=== PATIENT | male | born 1945 | race Caucasian/White ===

== ENCOUNTER 2016-05-03 05:18 | Inpatient (IN) | payer MEDICARE, OTHER ==
[2016-05-03] MEDS ORDERED: ROCEPHIN 1 Gm-D5w 50 ml Bag** 50 ML IV ONE ×2 (05:21→05:34)
[2016-05-03] MEDS ORDERED: PROVENTIL 2.5 MG/3 ML NEB IH ONE ×2 (05:21→05:49)
[2016-05-03] MEDS ORDERED: Zithromax 500 MG/ 250 ML NaCl Premix 250 ML IV ONE ×2 (05:21→05:34)
--- NOTE | 2016-05-03 05:29 | ERPHSYRPT ---
- History of Present Illness Time Seen by Provider: 05/03/16 05:19 Source: patient Exam Limitations: no limitations Physician History: FOR THE PAST WEEK PT HAS HAD SHORTNESS OF AIR AND COUGH WORSE TONIGHT WITH FEVER OF 101 DEGREES, LEFT ANTERIOR CHEST PAIN AND ABDOMINAL PAIN FOR THE PAST HOUR. PT DENIES VOMITING, DIARRHEA, DYSURIA. Allergies/Adverse Reactions: No Known Drug Allergies Allergy (Verified 05/03/16 05:41) Home Medications: Albuterol Sulfate [Proair Hfa] 2 puff IH TIDPRN PRN 05/05/14 [History] Albuterol Sulfate 2.5 mg IH Q6H PRN PRN 05/03/16 [History] Fluticasone/Salmeterol [Advair 250-50 Diskus] 1 puff IH BID 05/03/16 [History] Sacubitril/Valsartan [Entresto 24 mg-26 mg Tablet] 1 each PO BID 05/03/16 [ History] Hx Tetanus, Diphtheria Vaccination/Date Given: Yes Hx Influenza Vaccination/Date Given: Yes Hx Pneumococcal Vaccination/Date Given: No - Review of Systems Constitutional: Fever Respiratory: Cough, Dyspnea Cardiac: Chest Pain Abdominal/Gastrointestinal: Abdominal Pain, No Vomiting, No Diarrhea Genitourinary Symptoms: No Dysuria All Other Systems: Reviewed and Negative - Past Medical History Pertinent Past Medical History: No Neurological History: No Pertinent History ENT History: Cataracts Cardiac History: No Pertinent History Respiratory History: COPD Endocrine Medical History: No Pertinent History Musculoskeletal History: No Pertinent History GI Medical History: No Pertinent History History: No Pertinent History Psycho-Social History: No Pertinent History Male Reproductive Disorders: No Pertinent History - Past Surgical History Past Surgical History: No Neuro Surgical History: No Pertinent History Cardiac: No Pertinent History Respiratory: No Pertinent History Gastrointestinal: No Pertinent History Genitourinary: No Pertinent History Musculoskeletal: No Pertinent History Other Surgical History: cataracts sx in 2014 - Social History Smoking Status: Former smoker Exposure to second hand smoke: No Drug Use: none Patient Lives Alone: No - Nursing Vital Signs Nursing Vital Signs: Initial Vital Signs Temperature 98.0 F Temperature Source Axillary Pulse Rate 99 Respiratory Rate 18 Blood Pressure [] 92/56 Pain Intensity 0 - Physical Exam General Appearance: alert Eye Exam: PERRL/EOMI Ears, Nose, Throat Exam: hearing grossly normal Neck Exam: full range of motion Respiratory Exam: respiratory distress, diminished breath sounds, accessory muscle use, wheezing Cardiovascular/Chest Exam: normal heart sounds Abdominal/Gastrointestinal Exam: soft, normal bowel sounds Extremity Exam: normal inspection, No pedal edema Peripheral Pulses Exam: dorsalis-pedis (R): 2+, dorsalis-pedis (L): 2+ Neurologic Exam: alert, cooperative Skin Exam: warm, dry SpO2 Interpretation: normal SpO2: 96 Oxygen Delivery: BiPap - Course Nursing assessment & vital signs reviewed: Yes EKG Interpreted by Me: RATE (99), Sinus Rhythm, NORMAL AXIS, Non-specific ST Changes - Radiology Exams Chest X-ray Interpretation: Interpreted by me (COPD) Ordered Tests: Active Orders 24 hr Category Date Time Status Business Banking Representative STAT Care 05/03/16 05:21 Active EKG-ER Only STAT Care 05/03/16 05:21 Active IV Insertion STAT Care 05/03/16 05:21 Active Pulse Oximetry (ED) STAT Care 05/03/16 05:21 Active CHEST 1 VIEW (PORTABLE) Stat Exams 05/03/16 05:22 Taken AMYLASE Stat Lab 05/03/16 05:39 Completed ARTERIAL BLOOD GASES Urgent Lab 05/03/16 05:21 Completed BLOOD CULTURE Stat Lab 05/03/16 06:00 Received CBC W DIFF Stat Lab 05/03/16 05:39 Completed CMP Stat Lab 05/03/16 05:39 Completed CULTURE, THROAT Stat Lab 05/03/16 05:39 Received CULTURE,SPUTUM Stat Lab 05/03/16 06:14 Ordered LIPASE Stat Lab 05/03/16 05:39 Completed MAGNESIUM Stat Lab 05/03/16 05:39 Completed Manual Differential NC Stat Lab 05/03/16 05:39 Completed NT PRO BNP Stat Lab 05/03/16 05:39 Completed STREP SCREEN-BETA A Stat Lab 05/03/16 05:39 Completed TROPONIN Stat Lab 05/03/16 05:39 Completed BiPap/CPAP Assessment STAT RT 05/03/16 05:21 Completed Respiratory Nebulizer STAT RT 05/03/16 05:23 Completed Medication Summary Generic Name Dose Route Start Last Admin Trade Name Freq PRN Reason Stop Dose Admin Azithromycin 250 mls @ 125 mls/hr 05/03/16 05:21 05/03/16 05:46 Zithromax 500 Mg/ 250 Ml Nacl Premix IV 05/03/16 07:20 125 mls/hr STAT ONE Administration Sodium Chloride 1,000 mls @ 100 mls/hr 05/03/16 05:30 05/03/16 05:46 Sodium Chloride 0.9% 1000 Ml IV 06/02/16 05:29 100 mls/hr .Q10H YAIR Administration Magnesium Sulfate/Dextrose 100 mls @ 200 mls/hr 05/03/16 06:34 Magnesium 1 Gm / 100 Ml D5w IV 05/03/16 07:03 STAT ONE Discontinued Medications Generic Name Dose Route Start Last Admin Trade Name Jasonq PRN Reason Stop Dose Admin Albuterol Sulfate 2.5 mg 05/03/16 05:21 05/03/16 05:50 Proventil 2.5 Mg/3 Ml Neb IH 05/03/16 05:22 2.5 mg STAT ONE Administration Albuterol Sulfate Confirm 05/03/16 05:49 Proventil 2.5 Mg/3 Ml Neb Administered 05/03/16 05:50 Dose 2.5 mg IH .STK-MED ONE Ceftriaxone Sodium/Dextrose 50 mls @ 100 mls/hr 05/03/16 05:21 05/03/16 05:46 Rocephin 1 Gm-D5w 50 Ml Bag IV 05/03/16 05:50 100 mls/hr STAT ONE Administration Azithromycin Confirm 05/03/16 05:34 Zithromax 500 Mg/ 250 Ml Nacl Premix Administered 05/03/16 05:35 Dose 250 mls @ ud IV .STK-MED ONE Sodium Chloride Confirm 05/03/16 05:34 Sodium Chloride 0.9% 1000 Ml Administered 05/03/16 05:35 Dose 1,000 mls @ ud .ROUTE .STK-MED ONE Ceftriaxone Sodium/Dextrose Confirm 05/03/16 05:34 Rocephin 1 Gm-D5w 50 Ml Bag Administered 05/03/16 05:35 Dose 50 mls @ ud IV .STK-MED ONE Lab/Rad Data: Laboratory Result Diagrams 05/03/16 05:39 05/03/16 05:39 Laboratory Results 05/03/16 05/03/16 05/03/16 Range/Units 05:39 05:39 05:39 WBC (4.0-10.5) K/mm3 RBC (4.1-5.6) M/mm3 Hgb (12.5-18.0) gm/dl Hct (42-50) % MCV (78-100) fl MCH (26-32) pg MCHC (32-36) g/dl RDW (11.5-14.0) % Plt Count (150-450) K/mm3 MPV (6-9.5) fl Segmented Neutrophils (36.-66.) % Band Neutrophils (0.0-2.0) % Lymphocytes (Manual) (24-44) % Monocytes (Manual) (0.0-12.0) % Platelet Estimate (NORMAL) Poikilocytosis Puncture Site pCO2 (35-45) mmHg pO2 (75-100) mmHg Base Excess (-2.0-2.0) O2 Saturation (94-100) g/dF ABG pH (7.35-7.45) ABG HCO3 (22-28) ABG O2 Sat (Measured) (95-100) % Gopi Test A-a Gradient a/A Ratio Hemoglobin Carboxyhemoglobin (0.0-6.9) % THgb Methemoglobin (1.4-1.5) % Potassium 4.6 (3.5-5.1) Temperature C POC O2 Flow Rate % Sodium 140 (136-145) mEq/L Chloride 101 (98-107) mEq/L Carbon Dioxide 31.0 (21-32) mEq/L Anion Gap 12.4 (5-15) MEQ/L BUN 17 (9-20) mg/dL Creatinine 0.92 (0.55-1.30) mg/dl Estimated GFR > 60 ML/MIN Glucose 122 H (70-110) MG/DL Calcium 8.8 (8.5-10.1) mg/dL Magnesium 1.7 L (1.8-2.4) mg/dL Total Bilirubin 1.6 H (0.2-1.0) mg/dL AST 13 L (15-37) U/L ALT 14 (12-78) U/L Alkaline Phosphatase 66 (46-116) U/L Troponin I < 0.017 (0.000-0.056) ng/ml NT-Pro-B Natriuret Pep 242 H (0-125) pg/ml Serum Total Protein 7.6 (6.4-8.2) gm/dL Albumin 4.0 (3.4-5.0) g/dL Amylase 15 L (25-115) U/L Lipase 48 L (73-393) U/L Streptococcus Screen NEGATIVE (Negative) 05/03/16 05/03/16 Range/Units 05:39 05:21 WBC 14.6 H (4.0-10.5) K/mm3 RBC 4.56 (4.1-5.6) M/mm3 Hgb 13.8 (12.5-18.0) gm/dl Hct 43.1 (42-50) % MCV 94.5 (78-100) fl MCH 30.3 (26-32) pg MCHC 32.0 (32-36) g/dl RDW 14.5 H (11.5-14.0) % Plt Count 187 (150-450) K/mm3 MPV 10.7 H (6-9.5) fl Segmented Neutrophils 92 H (36.-66.) % Band Neutrophils 1 (0.0-2.0) % Lymphocytes (Manual) 5 L (24-44) % Monocytes (Manual) 2 (0.0-12.0) % Platelet Estimate NORMAL (NORMAL) Poikilocytosis 1+ Puncture Site RIGHT BRACHIAL pCO2 54 H (35-45) mmHg pO2 92 (75-100) mmHg Base Excess 2.9 H (-2.0-2.0) O2 Saturation 95.7 (94-100) g/dF ABG pH 7.35 (7.35-7.45) ABG HCO3 29.8 H* (22-28) ABG O2 Sat (Measured) 99.1 (95-100) % Gopi Test YES A-a Gradient 554 a/A Ratio 0.14 Hemoglobin 14.0 Carboxyhemoglobin 2.2 (0.0-6.9) % THgb Methemoglobin 1.1 L (1.4-1.5) % Potassium 4.4 (3.5-5.1) Temperature 37.0 C POC O2 Flow Rate 100 % Sodium (136-145) mEq/L Chloride (98-107) mEq/L Carbon Dioxide (21-32) mEq/L Anion Gap (5-15) MEQ/L BUN (9-20) mg/dL Creatinine (0.55-1.30) mg/dl Estimated GFR ML/MIN Glucose (70-110) MG/DL Calcium (8.5-10.1) mg/dL Magnesium (1.8-2.4) mg/dL Total Bilirubin (0.2-1.0) mg/dL AST (15-37) U/L ALT (12-78) U/L Alkaline Phosphatase (46-116) U/L Troponin I (0.000-0.056) ng/ml NT-Pro-B Natriuret Pep (0-125) pg/ml Serum Total Protein (6.4-8.2) gm/dL Albumin (3.4-5.0) g/dL Amylase (25-115) U/L Lipase (73-393) U/L Streptococcus Screen (Negative) - Progress Discussed with Dr.: Friedman (OBS - [id number]) - Departure Time of Disposition: 06:43 Departure Disposition: Observation Clinical Impression: COPD - ACUTE EXACERBATION Condition: Stable Critical Care Time: No
[2016-05-03] MEDS ORDERED: Sodium Chloride 0.9% 1000 ML 1,000 ML IV SCH (05:30)
[2016-05-03] MEDS ORDERED: Sodium Chloride 0.9% 1000 ML 1,000 ML ONE (05:34)
[2016-05-03 05:52] LABS: Mean Cell Volume 94.5 fl (78-100); Mean Corpuscular Hemoglobin 30.3 pg (26-32); Mean Platelet Volume 10.7 fl (6-9.5); Platelet Count 187 K/mm3 (150-450); Red Blood Count 4.56 M/mm3 (4.1-5.6); Red Cell Distribution Width 14.5 % (11.5-14.0); White Blood Count 14.6 K/mm3 (4.0-10.5)
[2016-05-03 06:07] LABS: BAND 1 % (0.0-2.0); Total Cells Counted 100
[2016-05-03 06:09] LABS: LIPASE 48 U/L (73-393); Platelet Estimate NORMAL (NORMAL); Poikilocytosis 1+
[2016-05-03 06:19] LABS: ALKALINE PHOSPHATASE 66 U/L (46-116); ANION GAP 12.4 MEQ/L (5-15); BILIRUBIN,TOTAL 1.6 mg/dL (0.2-1.0); BLOOD UREA NITROGEN 17 mg/dL (9-20); CHLORIDE 101 mEq/L (98-107); Glucose 122 MG/DL (70-110); MAGNESIUM 1.7 mg/dL (1.8-2.4); Potassium 4.6 mEq/L (3.5-5.1); SGOT/AST 13 U/L (15-37); SGPT/ALT 14 U/L (12-78); SODIUM 140 mEq/L (136-145); Total Protein 7.6 gm/dL (6.4-8.2)
[2016-05-03 06:28] LABS: TROPONIN < 0.017 ng/ml (0.000-0.056)
[2016-05-03] MEDS ORDERED: Magnesium 1 Gm / 100 Ml D5W*** 100 ML IV ONE ×2 (06:34→06:48)
[2016-05-03 06:36] LABS: A-aADO2 554; ALLEN TEST OK? YES; ARTERIAL BLD GAS O2 SATURATION 99.1 % (95-100); ARTERIAL BLOOD GAS BASE EXCESS 2.9 (-2.0-2.0); ARTERIAL BLOOD GAS FIO2 100 %; ARTERIAL BLOOD GAS PO2 92 mmHg (75-100); ARTERIAL BLOOD GAS pH 7.35 (7.35-7.45)
[2016-05-03] MEDS ORDERED: Phenergan 25 MG INJ IV PRN (07:32)
[2016-05-03] MEDS ORDERED: PROVENTIL 2.5 MG/3 ML NEB IH PRN (07:32)
[2016-05-03] MEDS ORDERED: TYLENOL 325 MG PO PRN (07:32)
[2016-05-03] MEDS: solu-MEDROL 40 MG IV SCH ×3 (08:42→21:10)
[2016-05-03] MEDS: MAG-OX 400 PO SCH (08:42)
[2016-05-03] MEDS: PROTONIX 40 MG IV IV SCH (08:42)
--- NOTE | 2016-05-03 09:18 | XRAY ---
Indication: Short of breath. Comparison: August 31, 2015. Portable chest again hyperinflated and clear. Heart is not enlarged. Bony thorax intact. No new/acute findings. Impression: Stable nonacute hyperinflated chest.
[2016-05-03] MEDS: DUONEB 0.5-3 MG/3 ml Neb IH SCH ×5 (10:26→22:49)
[2016-05-03] MEDS: Advair Hfa 115/21 Common canister IH SCH ×2 (10:28→18:55)
[2016-05-03] MEDS ORDERED: MEDICATION INTERVENTION MC PRN (14:04)
[2016-05-03] MEDS: Toprol-Xl 25MG Tablets PO SCH (14:11)
[2016-05-03] MEDS: ENOXAPARIN SODIUM SQ SCH (14:12)
--- NOTE | 2016-05-03 14:43 | HP ---
HISTORY OF PRESENT ILLNESS: This is a 70 year-old male without a physician in the local area presented to the emergency department. He reports that he has had trouble breathing for the past two days with increased congestion, cough, sputum that is thick and green in color. He reports a temperature up to 100.3F yesterday. He reports he has a long history of chronic obstructive pulmonary disease for the past ten to eleven years and used to smoke more than a pack a day but quit six to seven years ago. He reports he was trying to use Mucinex as needed. He also has used Tussionex in the past and that has helped as well. He reports that he is still having some trouble breathing but feeling a little bit better than when he came into the hospital. REVIEW OF SYSTEMS: He reports he had a lot of weight loss two years ago that he has not been able to regain. He denies any lower extremity edema. He reports gout in the past which one of the medicines that Dr. Douglass gave him helped with. He reports decreased appetite. He had some chest pain in the emergency room that he felt may have been a muscle spasm. It seemed to radiate to his stomach. He denied any diaphoresis with this. He has been extremely short of breath, cough, and fever. No diarrhea. No constipation. PAST MEDICAL HISTORY: Chronic obstructive pulmonary disease. History of heart problems for which he has seen Dr. Viera for but he denies any coronary artery disease. He reports that he had heart cath in the past that has been normal. He has had the weight loss. History of gout. PAST SURGICAL HISTORY: Cataract surgery. SOCIAL HISTORY: He does not smoke now. He quit six to seven years ago and was smoking greater than one pack per day. No alcohol use currently or recently. He lives with his daughter who reports that she has to do all of the shopping. FAMILY HISTORY: His mother is and had Alzheimer's. His father is and had myocardial infarction when he was 92 years of age. PHYSICAL EXAMINATION: VITAL SIGNS: Temperature current 97.9F, temperature max 97.9F, heart rate 72 to 96, respiratory rate 18 to 24, blood pressure 112 to 128 over 56 to 68, weight 52.5 kg. Oxygen saturation 96 to 97% on 4 liters nasal cannula. GENERAL: The patient is sitting up in bed, slightly dyspneic but talking in full sentences, alert and pleasant and talkative. He is very thin. CVS: He has a regular rate and rhythm. No murmurs, gallops or rubs are appreciated. CHEST: He has distant breath sounds throughout that are equal with scattered wheezes. ABDOMEN: Soft, nontender, nondistended. EXTREMITIES: No clubbing, cyanosis or edema. LABORATORY DATA AND TESTS: On admission his white blood cell count was 14,600 with 92% neutrophils, 1% band, 5% lymphs. CMP revealed glucose 122. Magnesium on admission was 1.7, repeat later this morning was 2.4 after replacement. BNP was slightly elevated to 242. He has blood cultures, sputum cultures and throat cultures in lab. Chest x-ray was read as stable nonacute hyperinflated chest. ASSESSMENT AND PLAN: 1) CHRONIC OBSTRUCTIVE PULMONARY DISEASE EXACERBATION: He has been started on ceftriaxone and azithromycin as well as IV steroids. Will continue with all of these, continue with oxygen as needed and breathing treatments. Will ask for core rescuer, Dr. Ganesh Douglass, to see the patient. 2) HISTORY OF UNSPECIFIED HEART PROBLEM: Will try to obtain Dr. Viera's records. 3) CHEST PAIN: He is on a chest pain pathway. He had serial negative troponins. His EKG is normal sinus rhythm with a heart rate of 90, nonspecific T-wave changes in the inferior leads and PVC. Will continue with telemetry and rule out for acute myocardial infarction. 4) CODE STATUS: The patient states that he does not want to be placed on a ventilator or have chest compressions done. 5) DEEP VENOUS THROMBOSIS PROPHYLAXIS: He will be started on Lovenox 40 mg subcutaneously daily as well as CHRISTOPHER hose.
--- NOTE | 2016-05-03 15:23 | CONS ---
CONSULT DATE: 05/03/2016 REASON FOR CONSULTATION: HISTORY: Dennys Jorgensen is a 70 year-old male with long standing history of chronic obstructive pulmonary disease well known to me but has never been hospitalized in the recent past. He started experiencing cough, shortness of breath, wheezing leading to an emergency room visit. The patient has since been admitted. He also lost unquantified amount of weight in the past few months. The patient does report poor appetite. He denies any hemoptysis. The patient has cough which has been thick and green in expectoration. He does report difficulty in expectorating the same and was advised to have tri-flutter valve. PAST MEDICAL HISTORY: Positive for chronic obstructive pulmonary disease, coronary artery disease, chronic respiratory failure, anxiety. PAST SURGICAL HISTORY: No recent surgeries. PERSONAL AND SOCIAL HISTORY: He is a former smoker. MEDICATIONS: Home and current medications are reviewed. ALLERGIES: ALLERGIES NOTED. PHYSICAL EXAMINATION: This is an elderly male who appears mildly tachypneic at rest. Vital signs are noted. HEENT: Normocephalic. Pupils are reactive. Oral exam unremarkable. NECK: Supple. Accessory muscles are mildly prominent.CVS: First and second heart sounds are normal, regular, rhythmic. RESPIRATORY: There is increase in AP diameter of chest. Breath sounds are diminished. Bilateral rhonchi are heard. ABDOMEN: Soft. EXTREMITIES: No significant edema is noted. LABORATORY DATA AND TESTS: X-rays were reviewed. ASSESSMENT: This is a 70 year old male admitted with: 1) Chronic obstructive pulmonary disease with acute exacerbation. 2) Acute bronchitis. 3) Hypoxemia. 4) Significant weight loss concerning for occult malignancy. RECOMMENDATIONS: 1) I agree with current treatment. 2) Will obtain CT chest with contrast per pulmonary embolism protocol. 3) Follow up labs. 4) Check CEA and PSA. 5) Will get nutritional consult as well as start the patient on Boost. 6) Reduce steroids as clinical improvement is noted. If the patient's expectoration does not improve, may require bronchoscopy. 7) Further recommendations pending clinical improvement. Thank you for allowing me to participate in the care of Dennys Jorgensen.
--- NOTE | 2016-05-03 15:53 | XRAY ---
Indication: Short of breath and chest pain. Multiple contiguous axial images obtained through the chest using 80 cc Isovue 370 contrast and PE protocol. Comparison: August 31, 2015. There is again good opacification of the pulmonary arteries to include the lobar and segmental branches. Again no filling defect or pulmonary embolus. Heart is not enlarged. Aorta again minimally arteriosclerotic. Stable tiny right hilar calcified nodes. No pathologic mediastinal/hilar lymphadenopathy. Examination of the lung parenchyma again demonstrates extensive pulmonary emphysema and scattered fibrosis/scarring. Stable pulmonary micronodules in both upper lobes. No infiltrate, consolidation, or effusion. Bony thorax intact again with mild degenerative changes throughout the spine. Limited upper abdomen demonstrates stable right lobe hepatic and bilateral renal cysts. Impression: 1. Again negative for pulmonary embolus. No new/acute cardiopulmonary abnormalities. 2. Stable extensive pulmonary emphysema and scattered fibrosis/scarring. 3. Stable pulmonary micronodules again probably granulomatous in this demographic. The left apical noncalcified nodule is only stable since August 2015. Consider follow-up study per Fleischner guidelines. 4. Stable hepatic and renal cysts. CTDI 10.00
[2016-05-03] MEDS: Mucomyst 200 MG/ML IH SCH ×2 (17:12→18:53)
[2016-05-03] MEDS ORDERED: NON-FORMULARY ITEM (Sacubitril/Valsartan [Entresto 24 Mg-26 Mg Tablet] 1 EACH) PO SCH (22:00)
[2016-05-04] MEDS: solu-MEDROL 40 MG IV SCH ×4 (02:41→20:18)
[2016-05-04] MEDS: DUONEB 0.5-3 MG/3 ml Neb IH SCH ×6 (02:59→23:14)
[2016-05-04 05:43] LABS: Mean Cell Volume 94.9 fl (78-100); Mean Platelet Volume 10.6 fl (6-9.5); Platelet Count 161 K/mm3 (150-450); Red Blood Count 3.94 M/mm3 (4.1-5.6); Red Cell Distribution Width 14.6 % (11.5-14.0); White Blood Count 14.2 K/mm3 (4.0-10.5)
[2016-05-04 05:50] LABS: Mean Corpuscular Hemoglobin 29.6 pg (26-32)
[2016-05-04 06:25] LABS: ALBUMIN 3.4 g/dL (3.4-5.0); ALKALINE PHOSPHATASE 54 U/L (46-116); ANION GAP 9.6 MEQ/L (5-15); BILIRUBIN,TOTAL 0.3 mg/dL (0.2-1.0); BLOOD UREA NITROGEN 21 mg/dL (9-20); CHLORIDE 107 mEq/L (98-107); Carbon Dioxide 31.2 mEq/L (21-32); Glucose 159 MG/DL (70-110); Potassium 4.7 mEq/L (3.5-5.1); SGOT/AST 13 U/L (15-37); SGPT/ALT 12 U/L (12-78); SODIUM 143 mEq/L (136-145); Total Protein 6.6 gm/dL (6.4-8.2)
[2016-05-04 07:07] LABS: Total Cells Counted 100
[2016-05-04 07:08] LABS: Platelet Estimate NORMAL (NORMAL)
[2016-05-04] MEDS: Advair Hfa 115/21 Common canister IH SCH ×2 (07:09→19:19)
[2016-05-04] MEDS: ROCEPHIN 1 Gm-D5w 50 ml Bag** 50 ML IV SCH (09:13)
[2016-05-04] MEDS: MAG-OX 400 PO SCH (09:14)
[2016-05-04] MEDS: PROTONIX 40 MG IV IV SCH (09:14)
[2016-05-04] MEDS: Toprol-Xl 25MG Tablets PO SCH (09:14)
--- NOTE | 2016-05-04 09:18 | PCM.NOTE ---
Date and Time: 05/04/16912 Subjective Assessment: He reports he has been jittery today. He has had a good appetite since coming here. He continues to cough up sputum but not as much this AM. He feels like his breathing is a little bit better this AM. - Review of Systems Constitutional: Weight Loss Eyes: No Symptoms Ears, Nose, & Throat: No Symptoms Respiratory: Cough, Short Of Breath, Wheezing Cardiac: No Symptoms Abdominal/Gastrointestinal: No Symptoms Genitourinary Symptoms: No Symptoms Musculoskeletal: No Symptoms Skin: No Symptoms Objective Exam General Appearance: cachetic, thin Neurologic Exam: alert, cooperative, normal mood/affect Skin Exam: normal color, warm, dry, No rash Respiratory Exam: other (scattered wheezes throughout, distant breath sounds bilat) Cardiovascular Exam: regular rate/rhythm, normal heart sounds, No murmur, No friction rub, No gallop Gastrointestinal/Abdomen Exam: soft, normal bowel sounds, No tenderness, No distention, No mass, No guarding Extremity Exam: other (no c/c/e) OBJECTIVE DATA Vital Signs: Vital Signs - 24 hr Temp Pulse Resp BP Pulse Ox 05/04/16 07:27 97.4 F 85 20 103/51 95 05/04/16 04:00 97.6 F 89 20 95/48 98 05/04/16 03:01 89 20 98 05/04/16 00:00 98.1 F 83 20 101/57 96 05/03/16 22:54 83 24 96 05/03/16 20:00 97.8 F 91 H 15 108/59 97 05/03/16 19:45 104 H 22 98 05/03/16 18:55 87 20 97 05/03/16 16:04 97.8 F 88 20 122/59 98 05/03/16 14:04 91 H 20 95 05/03/16 11:00 97.9 F 94 H 22 112/56 96 05/03/16 10:31 72 18 97 Oxygen-Last 24 hours O2 Percentage 3 Liters = 32% O2 Percentage 3 Liters = 32% O2 Percentage 3 Liters = 32% O2 Percentage 2 Liters = 28% O2 Percentage 2 Liters = 28% O2 Percentage 4 Liters = 36% Pain Assessment - Last Documented Pain Scale Used 0-10 Pain Scale Intake and Output: Intake & Output 05/02/16 05/03/16 05/04/16/17/17 06:59 06:59 06:59 06:59 Intake Total 1200 Output Total 950 200 Balance 250 -200 Weight 52.526 kg 52.345 kg Lab Results: Lab Results-Last 24 Hours 05/03/16 05/03/16 05/04/16 Range/Units 11:00 11:00 05:13 WBC 14.2 H (4.0-10.5) K/mm3 RBC 3.94 L (4.1-5.6) M/mm3 Hgb 11.7 L (12.5-18.0) gm/dl Hct 37.4 L (42-50) % MCV 94.9 (78-100) fl MCH 29.6 (26-32) pg MCHC 31.3 L (32-36) g/dl RDW 14.6 H (11.5-14.0) % Plt Count 161 (150-450) K/mm3 MPV 10.6 H (6-9.5) fl Segmented Neutrophils 95 H (36.-66.) % Lymphocytes (Manual) 3 L (24-44) % Monocytes (Manual) 2 (0.0-12.0) % Differential Comment NORMAL Platelet Estimate NORMAL (NORMAL) Sodium (136-145) mEq/L Potassium (3.5-5.1) mEq/L Chloride (98-107) mEq/L Carbon Dioxide (21-32) mEq/L Anion Gap (5-15) MEQ/L BUN (9-20) mg/dL Creatinine (0.55-1.30) mg/dl Estimated GFR ML/MIN Glucose (70-110) MG/DL Calcium (8.5-10.1) mg/dL Magnesium 2.4 (1.8-2.4) mg/dL Total Bilirubin (0.2-1.0) mg/dL AST (15-37) U/L ALT (12-78) U/L Alkaline Phosphatase (46-116) U/L Troponin I < 0.017 (0.000-0.056) ng/ml Serum Total Protein (6.4-8.2) gm/dL Albumin (3.4-5.0) g/dL 05/04/16 Range/Units 05:13 WBC (4.0-10.5) K/mm3 RBC (4.1-5.6) M/mm3 Hgb (12.5-18.0) gm/dl Hct (42-50) % MCV (78-100) fl MCH (26-32) pg MCHC (32-36) g/dl RDW (11.5-14.0) % Plt Count (150-450) K/mm3 MPV (6-9.5) fl Segmented Neutrophils (36.-66.) % Lymphocytes (Manual) (24-44) % Monocytes (Manual) (0.0-12.0) % Differential Comment Platelet Estimate (NORMAL) Sodium 143 (136-145) mEq/L Potassium 4.7 (3.5-5.1) mEq/L Chloride 107 (98-107) mEq/L Carbon Dioxide 31.2 (21-32) mEq/L Anion Gap 9.6 (5-15) MEQ/L BUN 21 H (9-20) mg/dL Creatinine 0.77 (0.55-1.30) mg/dl Estimated GFR > 60 ML/MIN Glucose 159 H (70-110) MG/DL Calcium 8.4 L (8.5-10.1) mg/dL Magnesium (1.8-2.4) mg/dL Total Bilirubin 0.3 (0.2-1.0) mg/dL AST 13 L (15-37) U/L ALT 12 (12-78) U/L Alkaline Phosphatase 54 (46-116) U/L Troponin I (0.000-0.056) ng/ml Serum Total Protein 6.6 (6.4-8.2) gm/dL Albumin 3.4 (3.4-5.0) g/dL Radiology Exams: Radiology Procedures Category Date Time Status CHEST WITH CONTRAST [CT] Urgent Exams 05/03/16 14:40 Completed Multi-Disciplinary Progress Notes: Multi-Disciplinary Progress Notes 05/04/16 04:48 Respiratory Note by Erika Bowman ON 05/03/16 AT 1849 PT HAD HIS FIRST DOSE OF MUCOMYST. AROUND 1940 NURSE CALLED RT TO REPORT PT WAS MORE SOB. RT JENNIFER WENT TO PT'S ROOM AND FOUND HIM ON THE SIDE OF THE BED IN A TRIPOD POSITION WITH INCREASED WOB. JENNIFER THEN CALLED THIS RT. I EXPLAINED THAT HE HAD HIS FIRST DOSE OF MUCOMYST AT 1849. I WENT TO PTS ROOM AT THIS TIME. PT WAS IN TRIPOD WITH INCREASED WOB. HR 104, RR, 22, SATS 98 ON 2L, B/S DECREASED. AT 1944 AN ALBUTEROL NEB GIVEN. PT STATES HE FEELS BETTER BUT WAS STILL A LITTLE SOB. Initialized on 05/04/16 04:48 - END OF NOTE Assessment/Plan (1) COPD exacerbation Current Visit: Yes Status: Acute Assessment & Plan: Continue IV antibiotics and steroids and check sputum culture. Continue oxygen and breathing treatments. He had a chest CT yesterday per Dr. Adonis spears he does not have a PE and one nodule that is stable since 09/03 and also extensive copd with scarring. Code(s): J44.1 - CHRONIC OBSTRUCTIVE PULMONARY DISEASE W (ACUTE) EXACERBATION (2) Non-ischemic cardiomyopathy Current Visit: Yes Status: Acute Assessment & Plan: Continue current medications. Dr. Viera's old notes reviewed. Code(s): I42.8 - OTHER CARDIOMYOPATHIES (3) Chest pain Current Visit: Yes Status: Acute Assessment & Plan: Ruled out for acute CT. D/c tele. Code(s): R07.9 - CHEST PAIN, UNSPECIFIED (4) Weight loss Current Visit: Yes Status: Acute Assessment & Plan: CEA and PSA ordered. Patient does not remember ever having had a colonoscopy.
[2016-05-04] MEDS: Zithromax 500 MG/ 250 ML NaCl Premix 250 ML IV SCH (09:51)
[2016-05-04] MEDS: Sodium Chloride 0.9% 1000 ML 1,000 ML IV SCH ×3 (09:56→15:43)
[2016-05-04] MEDS: ENOXAPARIN SODIUM SQ SCH (13:52)
[2016-05-05] MEDS: solu-MEDROL 40 MG IV SCH ×4 (02:51→22:00)
[2016-05-05] MEDS: DUONEB 0.5-3 MG/3 ml Neb IH SCH ×6 (03:04→22:44)
[2016-05-05 05:53] LABS: Mean Platelet Volume 10.4 fl (6-9.5); Platelet Count 187 K/mm3 (150-450); Red Blood Count 3.78 M/mm3 (4.1-5.6); Red Cell Distribution Width 14.9 % (11.5-14.0); White Blood Count 17.2 K/mm3 (4.0-10.5)
[2016-05-05 05:57] LABS: Mean Corpuscular Hemoglobin 29.8 pg (26-32)
[2016-05-05 06:07] LABS: ANION GAP 8.2 MEQ/L (5-15); BLOOD UREA NITROGEN 24 mg/dL (9-20); CHLORIDE 109 mEq/L (98-107); Carbon Dioxide 33.1 mEq/L (21-32); Glucose 149 MG/DL (70-110); Potassium 4.6 mEq/L (3.5-5.1); SODIUM 146 mEq/L (136-145)
[2016-05-05] MEDS: Advair Hfa 115/21 Common canister IH SCH (07:01)
[2016-05-05 07:15] LABS: BAND 11 % (0.0-2.0); Platelet Estimate NORMAL (NORMAL); Poikilocytosis 1+; Total Cells Counted 100
--- NOTE | 2016-05-05 08:57 | PCM.NOTE ---
Date and Time: 05/05/16 0853 Subjective Assessment: Patient reports more of a tickle and cough in the past 24 hours. He had a coughing fit while I was in the hospital this AM. He has been eating well. He has some shakes from the IV steroids. - Review of Systems Constitutional: No Symptoms Respiratory: Cough, Short Of Breath, Wheezing Cardiac: No Symptoms Abdominal/Gastrointestinal: No Symptoms Genitourinary Symptoms: No Symptoms Musculoskeletal: No Symptoms Skin: No Symptoms Objective Exam General Appearance: no apparent distress, cachetic, thin, other (able to talk in full sentences after coughing fit is over) Neurologic Exam: alert, cooperative, normal mood/affect Skin Exam: normal color, warm, dry Respiratory Exam: other (scattered wheezes throughout, distant breath sounds, no crackles, mild subcostal retractions after coughing episode.) Gastrointestinal/Abdomen Exam: soft, normal bowel sounds, No tenderness, No distention, No mass Extremity Exam: other (no c/c/e) OBJECTIVE DATA Vital Signs: Vital Signs - 24 hr Temp Pulse Resp BP Pulse Ox 05/05/16 07:41 98.2 F 80 20 113/56 96 05/05/16 07:00 78 18 98 05/05/16 04:00 16 05/05/16 03:41 97.9 F 95 H 15 111/58 96 05/05/16 03:00 92 H 22 93 L 05/05/16 00:00 16 05/04/16 23:58 98.3 F 98 H 15 113/81 100 05/04/16 23:16 92 H 16 96 05/04/16 20:00 97.9 F 94 H 17 113/63 99 05/04/16 19:00 86 18 96 05/04/16 16:00 98.0 F 97 H 17 94/51 96 05/04/16 14:27 92 H 20 97 05/04/16 11:23 97.8 F 99 H 18 97/49 100 05/04/16 10:52 102 H 20 96 Oxygen-Last 24 hours O2 Percentage 2 Liters = 28% O2 Percentage 2 Liters = 28% O2 Percentage 2 Liters = 28% O2 Percentage 3 Liters = 32% O2 Percentage 3 Liters = 32% Pain Assessment - Last Documented Pain Intensity 0 Pain Scale Used 0-10 Pain Scale Intake and Output: Intake & Output 05/03/16 05/04/16 05/05/16 05/06/16 06:59 06:59 06:59 06:59 Weight 58.287 kg Assessment/Plan (1) COPD exacerbation Current Visit: Yes Status: Acute Assessment & Plan: Continue with IV antibiotics and IV steroids. Lab says sputum is possibly H. influenza which the ceftriaxone will cover. Will ask that Dr. Douglass be updated. I tried to reach him but had to leave a voicemail to call back. Continue oxygen and breathing treatments. Patient encouraged to ask for bipap if he starts having more trouble breathing. Code(s): J44.1 - CHRONIC OBSTRUCTIVE PULMONARY DISEASE W (ACUTE) EXACERBATION (2) Non-ischemic cardiomyopathy Current Visit: Yes Status: Acute Assessment & Plan: Continue current medication. He has brought in his medication from home. Code(s): I42.8 - OTHER CARDIOMYOPATHIES (3) Chest pain Current Visit: Yes Status: Resolved Code(s): R07.9 - CHEST PAIN, UNSPECIFIED (4) Weight loss Current Visit: Yes Status: Acute Assessment & Plan: CEA and PSA ordered.
[2016-05-05] MEDS: ROCEPHIN 1 Gm-D5w 50 ml Bag** 50 ML IV SCH (10:28)
[2016-05-05] MEDS: PROTONIX 40 MG IV IV SCH (10:28)
[2016-05-05] MEDS: Toprol-Xl 25MG Tablets PO SCH (10:29)
[2016-05-05] MEDS: MAG-OX 400 PO SCH (10:29)
[2016-05-05] MEDS: PATIENT OWN MEDICATION PO SCH ×2 (10:54→22:01)
[2016-05-05] MEDS: Zithromax 500 MG/ 250 ML NaCl Premix 250 ML IV SCH (11:00)
[2016-05-05] MEDS: Sodium Chloride 0.9% 1000 ML 1,000 ML IV SCH (14:13)
[2016-05-05] MEDS: ENOXAPARIN SODIUM SQ SCH (14:14)
[2016-05-06] MEDS: solu-MEDROL 40 MG IV SCH ×4 (03:39→20:12)
[2016-05-06] MEDS: DUONEB 0.5-3 MG/3 ml Neb IH SCH ×6 (03:43→23:57)
[2016-05-06] MEDS: Advair Hfa 115/21 Common canister IH SCH ×3 (07:03→19:35)
[2016-05-06] MEDS: ROCEPHIN 1 Gm-D5w 50 ml Bag** 50 ML IV SCH (10:10)
[2016-05-06] MEDS: PROTONIX 40 MG IV IV SCH (10:11)
[2016-05-06] MEDS: Toprol-Xl 25MG Tablets PO SCH (10:12)
[2016-05-06] MEDS: MAG-OX 400 PO SCH (10:12)
[2016-05-06] MEDS: PATIENT OWN MEDICATION PO SCH ×2 (10:13→21:59)
[2016-05-06] MEDS: Zithromax 500 MG/ 250 ML NaCl Premix 250 ML IV SCH (11:07)
--- NOTE | 2016-05-06 11:36 | PCM.NOTE ---
Date and Time: 05/06/16 1135 Subjective Assessment: patient is improving, still sob with exertion. tolerating po, no new complaints Objective Exam General Appearance: no apparent distress, thin Respiratory Exam: prolonged expirations, wheezing Cardiovascular Exam: regular rate/rhythm, normal heart sounds Gastrointestinal/Abdomen Exam: soft, No tenderness, No mass Extremity Exam: normal inspection, normal range of motion OBJECTIVE DATA Vital Signs: Vital Signs - 24 hr Temp Pulse Resp BP Pulse Ox 05/06/16 10:00 96 H 22 94 L 05/06/16 08:00 20 05/06/16 07:32 98 F 91 H 20 111/58 95 05/06/16 07:00 92 H 18 97 05/06/16 04:00 97.7 F 84 20 112/60 94 L 05/06/16 02:00 87 20 94 L 05/05/16 23:32 98.7 F 91 H 18 128/58 96 05/05/16 22:46 91 H 20 96 05/05/16 19:45 98.5 F 84 22 119/58 98 05/05/16 18:54 93 H 16 98 05/05/16 16:00 98.5 F 86 21 128/58 94 L 05/05/16 14:55 85 18 93 L 05/05/16 12:00 98.0 F 115 H 22 121/58 95 Oxygen-Last 24 hours O2 Percentage 2 Liters = 28% O2 Percentage 2 Liters = 28% O2 Percentage 2 Liters = 28% O2 Percentage 2 Liters = 28% O2 Percentage 2 Liters = 28% Pain Assessment - Last Documented Pain Intensity 0 Pain Scale Used 0-10 Pain Scale Intake and Output: Intake & Output 05/03/16 05/04/16 05/05/16 05/06/16 11:59 11:59 11:59 11:59 Intake Total 1231 Output Total 1100 Balance 131 Weight 58.287 kg 58.513 kg Assessment/Plan (1) COPD exacerbation Current Visit: Yes Status: Acute Assessment & Plan: continue current management, appears to be improving Code(s): J44.1 - CHRONIC OBSTRUCTIVE PULMONARY DISEASE W (ACUTE) EXACERBATION
[2016-05-06] MEDS: ENOXAPARIN SODIUM SQ SCH (14:09)
[2016-05-06] MEDS: Tussionex Pennkinetic Susp PO SCH (18:13)
[2016-05-07] MEDS: solu-MEDROL 40 MG IV SCH ×4 (02:15→21:47)
[2016-05-07] MEDS: Sodium Chloride 0.9% 1000 ML 1,000 ML IV SCH (02:15)
[2016-05-07] MEDS: DUONEB 0.5-3 MG/3 ml Neb IH SCH ×7 (03:30→23:51)
--- NOTE | 2016-05-07 06:03 | PCM.NOTE ---
Date and Time: 05/07/16602 Subjective Assessment: no new complaints, still has nonproductive cough but seems to be improving overall. Objective Exam General Appearance: no apparent distress, alert Respiratory Exam: prolonged expirations, wheezing Cardiovascular Exam: regular rate/rhythm, normal heart sounds Gastrointestinal/Abdomen Exam: soft, No tenderness, No mass Extremity Exam: normal inspection, normal range of motion OBJECTIVE DATA Vital Signs: Vital Signs - 24 hr Temp Pulse Resp BP Pulse Ox 05/07/16 04:00 97.9 F 93 H 12 119/56 96 05/07/16 03:30 93 H 12 96 05/06/16 23:58 91 H 18 95 05/06/16 23:23 98.1 F 90 18 117/65 96 05/06/16 20:00 98.3 F 96 H 20 115/56 95 05/06/16 19:35 95 H 20 95 05/06/16 16:00 20 05/06/16 15:56 97.8 F 78 20 122/58 96 05/06/16 14:00 102 H 18 97 05/06/16 12:00 97.7 F 114 H 20 125/60 98 05/06/16 10:00 96 H 22 94 L 05/06/16 08:00 20 05/06/16 07:32 98 F 91 H 20 111/58 95 05/06/16 07:00 92 H 18 97 Oxygen-Last 24 hours O2 Percentage 2 Liters = 28% O2 Percentage 2 Liters = 28% O2 Percentage 2 Liters = 28% O2 Percentage 2 Liters = 28% O2 Percentage 2 Liters = 28% O2 Percentage 2 Liters = 28% Pain Assessment - Last Documented Pain Intensity 0 Pain Scale Used 0-10 Pain Scale Intake and Output: Intake & Output 05/04/16 05/05/16 05/06/16 05/07/16 11:59 11:59 11:59 11:59 Intake Total 1231 1666 Output Total 1100 1900 Balance 131 -234 Weight 58.287 kg 58.513 kg Assessment/Plan (1) COPD exacerbation Current Visit: Yes Status: Acute Assessment & Plan: continue current management, seems to be improving. might be ready to d/c tomorrow Code(s): J44.1 - CHRONIC OBSTRUCTIVE PULMONARY DISEASE W (ACUTE) EXACERBATION
[2016-05-07] MEDS: Advair Hfa 115/21 Common canister IH SCH ×3 (06:36→18:54)
[2016-05-07] MEDS: Zithromax 500 MG/ 250 ML NaCl Premix 250 ML IV SCH (08:20)
[2016-05-07] MEDS: PROTONIX 40 MG IV IV SCH (08:20)
[2016-05-07] MEDS: MAG-OX 400 PO SCH (08:20)
[2016-05-07] MEDS: Toprol-Xl 25MG Tablets PO SCH (08:20)
[2016-05-07] MEDS: ROCEPHIN 1 Gm-D5w 50 ml Bag** 50 ML IV SCH (08:20)
[2016-05-07] MEDS: Tussionex Pennkinetic Susp PO SCH ×2 (08:20→21:54)
[2016-05-07] MEDS: PATIENT OWN MEDICATION PO SCH ×2 (08:21→21:48)
[2016-05-07] MEDS: ENOXAPARIN SODIUM SQ SCH (14:02)
[2016-05-08] MEDS: solu-MEDROL 40 MG IV SCH ×3 (03:58→21:31)
[2016-05-08] MEDS: DUONEB 0.5-3 MG/3 ml Neb IH SCH ×6 (04:25→22:54)
[2016-05-08 06:19] LABS: BASOPHIL % 0.1 % (0.0-0.4); Granulocytes % 87.7 % (36.0-66.0); Lymphocytes % 5.8 % (24.0-44.0); Mean Cell Volume 95.5 fl (78-100); Mean Platelet Volume 10.5 fl (6-9.5); Monocytes % 6.4 % (0.0-12.0); Platelet Count 181 K/mm3 (150-450); Red Blood Count 4.04 M/mm3 (4.1-5.6)
[2016-05-08 06:24] LABS: Mean Corpuscular Hemoglobin 30.1 pg (26-32)
[2016-05-08 06:36] LABS: ALBUMIN 2.7 g/dL (3.4-5.0); ALKALINE PHOSPHATASE 84 U/L (46-116); ANION GAP 5.8 MEQ/L (5-15); BILIRUBIN,TOTAL 0.1 mg/dL (0.2-1.0); BLOOD UREA NITROGEN 19 mg/dL (9-20); CHLORIDE 104 mEq/L (98-107); Carbon Dioxide 36.8 mEq/L (21-32); Glucose 139 MG/DL (70-110); Potassium 4.2 mEq/L (3.5-5.1); SGOT/AST 24 U/L (15-37); SGPT/ALT 69 U/L (12-78); SODIUM 142 mEq/L (136-145); Total Protein 5.5 gm/dL (6.4-8.2)
[2016-05-08 07:01] LABS: BAND 1 % (0.0-2.0); Platelet Estimate NORMAL (NORMAL); Total Cells Counted 100
[2016-05-08] MEDS: Advair Hfa 115/21 Common canister IH SCH ×2 (07:10→18:59)
[2016-05-08] MEDS: Tussionex Pennkinetic Susp PO SCH ×2 (08:37→21:31)
--- NOTE | 2016-05-08 08:59 | PCM.NOTE ---
Date and Time: 05/08/16 0853 Subjective Assessment: He reports he continues to not be able to cough anything up. His appetite has been better. He reports that Dr. Lucille Lamb saw him Sunday and said they would see how he is doing Sunday. He denies any constipation or diarrhea. - Review of Systems Constitutional: No Symptoms Eyes: No Symptoms Respiratory: Cough, Short Of Breath, Wheezing Cardiac: No Symptoms Abdominal/Gastrointestinal: No Symptoms Genitourinary Symptoms: No Symptoms Musculoskeletal: No Symptoms Skin: No Symptoms Neurological: No Symptoms Objective Exam General Appearance: no apparent distress, thin Neurologic Exam: alert, cooperative, normal mood/affect Skin Exam: normal color, warm, dry, rash Respiratory Exam: other (few scattered expiratory wheezes, no crackles, equal breath sounds) Cardiovascular Exam: regular rate/rhythm, normal heart sounds, No murmur, No friction rub, No gallop Gastrointestinal/Abdomen Exam: soft, normal bowel sounds, No tenderness, No distention, No mass Extremity Exam: other (no c/c/e) OBJECTIVE DATA Vital Signs: Vital Signs - 24 hr Temp Pulse Resp BP Pulse Ox 05/08/16 04:25 81 16 97 05/08/16 04:00 97.6 F 85 20 120/63 98 05/08/16 00:00 97.8 F 89 16 125/60 95 05/07/16 23:51 89 16 95 05/07/16 20:00 97.9 F 83 16 151/66 96 05/07/16 18:55 83 16 96 05/07/16 16:00 98.3 F 88 20 121/61 97 05/07/16 14:00 18 L 95 05/07/16 12:00 20 05/07/16 11:25 98.6 F 91 H 20 117/55 98 05/07/16 10:00 95 H 18 98 Oxygen-Last 24 hours O2 Percentage 2 Liters = 28% O2 Percentage 2 Liters = 28% O2 Percentage 2 Liters = 28% O2 Percentage 2 Liters = 28% O2 Percentage 2 Liters = 28% Pain Assessment - Last Documented Pain Intensity 0 Pain Scale Used 0-10 Pain Scale Intake and Output: Intake & Output 05/06/16 05/07/16 05/08/16 05/09/16 06:59 06:59 06:59 06:59 Intake Total 1231 1666 1250 Output Total 800 2200 1900 Balance 431 534 650 Weight 58.287 kg 63.82 kg Lab Results: Lab Results-Last 24 Hours 05/08/16 05/08/16 Range/Units 05:20 05:20 WBC 12.0 H (4.0-10.5) K/mm3 RBC 4.04 L (4.1-5.6) M/mm3 Hgb 12.2 L (12.5-18.0) gm/dl Hct 38.6 L (42-50) % MCV 95.5 (78-100) fl MCH 30.1 (26-32) pg MCHC 31.6 L (32-36) g/dl RDW 14.0 (11.5-14.0) % Plt Count 181 (150-450) K/mm3 MPV 10.5 H (6-9.5) fl Gran % 87.7 H (36.0-66.0) % Lymphocytes % 5.8 L (24.0-44.0) % Monocytes % 6.4 (0.0-12.0) % Eosinophils % 0.0 (0.00-5.0) % Basophils % 0.1 (0.0-0.4) % Segmented Neutrophils 88 H (36.-66.) % Band Neutrophils 1 (0.0-2.0) % Lymphocytes (Manual) 8 L (24-44) % Monocytes (Manual) 3 (0.0-12.0) % Basophils # 0.01 (0-0.4) Differential Comment NORMAL Platelet Estimate NORMAL (NORMAL) Sodium 142 (136-145) mEq/L Potassium 4.2 (3.5-5.1) mEq/L Chloride 104 (98-107) mEq/L Carbon Dioxide 36.8 H (21-32) mEq/L Anion Gap 5.8 (5-15) MEQ/L BUN 19 (9-20) mg/dL Creatinine 0.76 (0.55-1.30) mg/dl Estimated GFR > 60 ML/MIN Glucose 139 H (70-110) MG/DL Calcium 7.9 L (8.5-10.1) mg/dL Total Bilirubin 0.1 L (0.2-1.0) mg/dL AST 24 (15-37) U/L ALT 69 (12-78) U/L Alkaline Phosphatase 84 (46-116) U/L Serum Total Protein 5.5 L (6.4-8.2) gm/dL Albumin 2.7 L (3.4-5.0) g/dL Assessment/Plan (1) COPD exacerbation Current Visit: Yes Status: Acute Assessment & Plan: Decrease IV steroids to 40 mg IV q 12 hours. Continue IV antibiotics. Plan to discontinue azithromycin after 5 days and continue ceftriaxone. Dr. Lucille Lamb has been following. Code(s): J44.1 - CHRONIC OBSTRUCTIVE PULMONARY DISEASE W (ACUTE) EXACERBATION (2) Non-ischemic cardiomyopathy Current Visit: Yes Status: Acute Assessment & Plan: Well controlled on his home medications. Code(s): I42.8 - OTHER CARDIOMYOPATHIES (3) Weight loss Current Visit: Yes Status: Acute Assessment & Plan: CEA was normal. PSA is not back yet. Patient continues to have a good appetite here.
[2016-05-08] MEDS: MAG-OX 400 PO SCH (10:15)
[2016-05-08] MEDS: PROTONIX 40 MG IV IV SCH (10:15)
[2016-05-08] MEDS: Toprol-Xl 25MG Tablets PO SCH (10:15)
[2016-05-08] MEDS: ROCEPHIN 1 Gm-D5w 50 ml Bag** 50 ML IV SCH (10:18)
[2016-05-08] MEDS: PATIENT OWN MEDICATION PO SCH ×2 (10:20→21:34)
[2016-05-08] MEDS: Sodium Chloride 0.9% 1000 ML 1,000 ML IV SCH ×2 (13:26→20:34)
[2016-05-08] MEDS ORDERED: Robitussin 100 MG/5 ML PO PRN (14:01)
[2016-05-08] MEDS: ENOXAPARIN SODIUM SQ SCH (15:44)
[2016-05-09] MEDS: DUONEB 0.5-3 MG/3 ml Neb IH SCH ×3 (02:36→11:35)
[2016-05-09] MEDS: Advair Hfa 115/21 Common canister IH SCH (07:10)
[2016-05-09] MEDS: Tussionex Pennkinetic Susp PO SCH (08:34)
--- NOTE | 2016-05-09 08:49 | PCM.NOTE ---
Date and Time: 05/09/16 0844 Subjective Assessment: Patient reports an episode last night of having trouble coughing up sputum. This was documented by his nurse around 2 am. He had been turned up on his oxygen last night from 2 L to 4L NC. He thinks he just got too dry and this is why he was having trouble coughing. He reports his IV fluids ran out but he reported he has been drinking lots of water. The RT said he got better after his IV steroids. These were weaned yesterday per Dr. Lucille Douglass's recommendations over the weekend. Objective Exam General Appearance: no apparent distress Neurologic Exam: alert, cooperative, normal mood/affect Skin Exam: normal color, warm, dry, No rash Respiratory Exam: other (distant breath sounds; mild tachypnea), No crackles/ rales, No rhonchi, No wheezing, No stridor Cardiovascular Exam: regular rate/rhythm, normal heart sounds, No murmur, No friction rub, No gallop Gastrointestinal/Abdomen Exam: soft, normal bowel sounds, No tenderness, No distention, No mass Extremity Exam: other (no c/c/e) OBJECTIVE DATA Vital Signs: Vital Signs - 24 hr Temp Pulse Resp BP Pulse Ox 05/09/16 08:00 98.5 F 87 20 123/52 98 05/09/16 07:00 91 H 16 98 05/09/16 04:00 99.5 F 105 H 20 134/60 98 05/09/16 02:36 105 H 19 98 05/09/16 00:00 98.6 F 89 18 128/59 98 05/08/16 22:54 85 20 98 05/08/16 20:00 22 05/08/16 19:56 97.9 F 95 H 22 124/59 100 05/08/16 18:58 97 H 20 97 05/08/16 16:00 98.7 F 87 20 124/58 99 05/08/16 15:51 20 05/08/16 14:00 107 H 20 95 05/08/16 12:00 98.1 F 83 20 129/60 99 05/08/16 10:52 74 16 98 Oxygen-Last 24 hours O2 Percentage 4 Liters = 36% O2 Percentage 3 Liters = 32% O2 Percentage 3 Liters = 32% O2 Percentage 2 Liters = 28% O2 Percentage 2 Liters = 28% O2 Percentage 2 Liters = 28% Pain Assessment - Last Documented Pain Intensity 0 Pain Scale Used 0-10 Pain Scale Intake and Output: Intake & Output 05/07/16 05/08/16 05/09/16 05/10/16 06:59 06:59 06:59 06:59 Intake Total 1666 1250 927 Output Total 2200 1900 1550 650 Balance -534 -650 -623 -650 Weight 63.82 kg 65.136 kg 65.907 kg Assessment/Plan (1) COPD exacerbation Current Visit: Yes Status: Acute Assessment & Plan: Continue with IV steroids and ceftriaxone. His sputum culture came back growing H. influenza. He finished a course of azithromycin already. Continue with breathing treatments. Try to get him back down to 2 L NC. I tried to call Dr. Lucille Douglass to touch base with him but he did not answer and his voice mail box was full. I have asked nursing to contact him through his office today. He is end stage COPD and overall prognosis is poor. Code(s): J44.1 - CHRONIC OBSTRUCTIVE PULMONARY DISEASE W (ACUTE) EXACERBATION (2) Non-ischemic cardiomyopathy Current Visit: Yes Status: Acute Assessment & Plan: Stable on his home medication. Code(s): I42.8 - OTHER CARDIOMYOPATHIES (3) Weight loss Current Visit: Yes Status: Acute Assessment & Plan: His CEA came back normal. PSA in lab. His appetite has been good here. His weights reveal he has gained 2 kg while being here in the hospital.
[2016-05-09] MEDS: Toprol-Xl 25MG Tablets PO SCH (10:38)
[2016-05-09] MEDS: MAG-OX 400 PO SCH (10:38)
[2016-05-09] MEDS: PROTONIX 40 MG IV IV SCH (10:39)
[2016-05-09] MEDS: PATIENT OWN MEDICATION PO SCH (10:39)
[2016-05-09] MEDS: solu-MEDROL 40 MG IV SCH (10:39)
[2016-05-09] MEDS: ROCEPHIN 1 Gm-D5w 50 ml Bag** 50 ML IV SCH (10:39)
[2016-05-09 13:03] VITALS: BP 124/60; PULSE 118; O2SAT 96
[2016-05-10 07:03] LABS: Prostate Specific Antigen 2.15 ng/mL (<=6.50)
--- NOTE | 2016-05-10 09:23 | DS ---
DISCHARGE DIAGNOSES: 1) CHRONIC OBSTRUCTIVE PULMONARY DISEASE EXACERBATION. 2) NON-ISCHEMIC CARDIOMYOPATHY. 3) WEIGHT LOSS. DISCHARGE PHYSICAL EXAMINATION: VITALS: Temperature current 98.6F, temperature max 98.7F, heart rate 74 to 107, respiratory rate 16 to 22, blood pressure 124 to 129 over 58 to 60, weight 65.9 kg. GENERAL: The patient is lying in bed in no acute distress a pleasant talkative man. He was alert and cooperative with normal mood and affect. CVS: Regular rate and rhythm. No murmurs, gallops or rubs. ABDOMEN: Soft with normal bowel sounds. No tenderness. No distention. No mass. EXTREMITIES: No clubbing, cyanosis or edema. RESPIRATORY: He has distant breath sounds and mild tachypnea. No crackles or rales. No rhonchi. No wheezing. No stridor. SKIN: Warm, dry and without any rashes. HOSPITAL COURSE: 1) CHRONIC OBSTRUCTIVE PULMONARY DISEASE EXACERBATION: He was started on ceftriaxone and azithromycin. He was admitted. He finished five days of azithromycin and he was on ceftriaxone throughout his entire hospitalization. He had a sputum culture that came back growing Haemophilus influenza. He was given breathing treatments throughout his stay. He was on oxygen ranging from 2 to 4 liters nasal cannula. [employer] Swe[employer] Cleaner, Dr. Ganesh Douglass, was consulted and saw the patient twice here in the hospital. On the day of his discharge, Dr. Ganesh Douglass was consulted and wanted him transferred to [facility] for bronchoscopy and continued care, as we are unable to do bronchoscopies here at this hospital. The patient has end-stage chronic obstructive pulmonary disease and his overall prognosis is poor. The patient was agreeable to transfer to [facility] for further testing so this was arranged and the patient was discharged to [facility]. 2) NON-ISCHEMIC CARDIOMYOPATHY: He was continued on his home medication of Entresto and this was stable during his hospitalization. 3) WEIGHT LOSS: Dr. Douglass ordered CEA and PSA. The CEA came back normal. The PSA was still in lab at the time of his discharge. The patient's appetite was good here and he had a 2 kg weight gain while here in the hospital. DISPOSITION: The patient was transferred to [facility] in stable condition. However his overall prognosis is poor given his end-stage chronic obstructive pulmonary disease. He was transferred under the care of Dr. Ganesh Douglass, [employer].
== END 2016-05-09 12:15 | disposition short-term general hospital (02) | DRG 191 ==
LOC: ED 05:18 → MED SURG 07:15 → OBSVTOIN 05-05 05:37
PROVIDERS: ADMIT Internal Medicine; ATTEND Internal Medicine
DX: J44.1 Chronic obstructive pulmonary disease with (acute) exacerbation (principal); I42.8 Other cardiomyopathies; I25.5 Ischemic cardiomyopathy; R63.4 Abnormal weight loss; M10.9 Gout, unspecified; R07.9 Chest pain, unspecified; R09.02 Hypoxemia; Z79.899 Other long term (current) drug therapy
CPT/HCPCS: 36415; 36600; 71010; 71260; 80048; 80053; 82150; 82375; 82378; 82803; 83690; 83735; 83880; 84153; 84154; 84484; 85025; 87040; 87070; 87077; 87430; 93005; 93041; 93268; 94002; 94640; 94760; 96360; 96365; 96367; 96368; 99285; G0378; J0456; J0696; J1650; J2920; J3475; A9270-GY

== ENCOUNTER 2016-07-28 00:15 | Emergency (ER) | payer MEDICARE, OTHER ==
[2016-07-28] MEDS ORDERED: DUONEB 0.5-3 MG/3 ml Neb IH ONE ×2 (00:21→00:22)
[2016-07-28] MEDS ORDERED: ROCEPHIN 1 Gm-D5w 50 ml Bag** 1 G/50 ML IVPB IV STA (00:22)
[2016-07-28] MEDS ORDERED: Zithromax 500 MG/ 250 ML NaCl Premix 500 MG/250 ML IVPB IV STA (00:22)
[2016-07-28] MEDS ORDERED: Magnesium 1 Gm / 100 Ml D5W*** 100 ML IV ONE ×2 (00:25→00:35)
[2016-07-28] MEDS ORDERED: solu-MEDROL 125 MG IV ONE (00:25)
--- NOTE | 2016-07-28 00:26 | ERPHSYRPT ---
- History of Present Illness Time Seen by Provider: 07/28/16 00:15 Source: patient Exam Limitations: no limitations Physician History: FOR THE PAST 16 HOURS PT HAS HAD SHORTNESS OF AIR, INTERMITTENT ABDOMINAL CRAMPS AND A TICKLE IN THE THROAT. PT DENIES CHEST PAIN, FEVER, VOMITING. Allergies/Adverse Reactions: acetylcysteine [From Mucomyst] Adverse Reaction (Intermediate, Verified 07:35) Shortness of Breath SOB AND INCREASED HEART RATE AFTER MUCOMYST TREATMENT. Home Medications: Albuterol Sulfate [Proair Hfa] 2 puff IH QIDPRN PRN 05/05/14 [History] Albuterol Sulfate 2.5 mg IH Q6HPRN PRN 05/03/16 [History] Fluticasone/Salmeterol [Advair 250-50 Diskus] 1 puff IH BID 05/03/16 [History] Metoprolol Succinate 25 mg Xl* [Toprol-Xl 25MG Tablets] 0.5 tab PO DAILY [History] Sacubitril/Valsartan [Entresto 24 mg-26 mg Tablet] 1 each PO BID 05/03/16 [ History] Hx Tetanus, Diphtheria Vaccination/Date Given: Yes Hx Influenza Vaccination/Date Given: Yes Hx Pneumococcal Vaccination/Date Given: No - Review of Systems Constitutional: No Fever Ears, Nose, & Throat: Other (TICKLE IN THROAT) Respiratory: Dyspnea Cardiac: No Chest Pain Abdominal/Gastrointestinal: Abdominal Pain, No Vomiting Neurological: No Headache Endocrine: No Excessive Sweating All Other Systems: Reviewed and Negative - Past Medical History Pertinent Past Medical History: No Neurological History: No Pertinent History ENT History: Cataracts Cardiac History: Arrhythmia Respiratory History: COPD Endocrine Medical History: No Pertinent History Musculoskeletal History: No Pertinent History GI Medical History: No Pertinent History History: No Pertinent History Psycho-Social History: No Pertinent History Male Reproductive Disorders: No Pertinent History Other Medical History: "irratic heartbeat" - Past Surgical History Past Surgical History: No Neuro Surgical History: No Pertinent History Cardiac: No Pertinent History Respiratory: No Pertinent History Gastrointestinal: No Pertinent History Genitourinary: No Pertinent History Musculoskeletal: No Pertinent History Other Surgical History: cataracts sx in 2013 - Social History Smoking Status: Former smoker Exposure to second hand smoke: No Drug Use: none Patient Lives Alone: No - Nursing Vital Signs Nursing Vital Signs: Initial Vital Signs Pulse Rate 100 Respiratory Rate 22 Blood Pressure [Right Arm] 72/46 Pain Intensity 0 - Physical Exam General Appearance: alert Eye Exam: PERRL/EOMI Ears, Nose, Throat Exam: hearing grossly normal, normal pharynx Neck Exam: normal inspection Respiratory Exam: respiratory distress, diminished breath sounds, accessory muscle use, wheezing Cardiovascular/Chest Exam: normal heart sounds Abdominal/Gastrointestinal Exam: soft, normal bowel sounds Extremity Exam: no pedal edema Peripheral Pulses Exam: dorsalis-pedis (R): 2+, dorsalis-pedis (L): 2+ Neurologic Exam: alert, cooperative Skin Exam: warm, dry SpO2 Interpretation: normal SpO2: 97 Oxygen Delivery: Nasal Cannula (4L) - Course Nursing assessment & vital signs reviewed: Yes EKG Interpreted by Me: RATE (120), Sinus Tach, NORMAL AXIS Ordered Tests: Active Orders 24 hr Category Date Time Status Rn Lactation STAT Care 07/28/16 00:22 Active EKG-ER Only STAT Care 07/28/16 00:22 Active EKG-ER Only STAT Care 07/28/16 01:52 Active IV Insertion STAT Care 07/28/16 00:22 Active Pulse Oximetry (ED) STAT Care 07/28/16 00:22 Active CHEST 1 VIEW (PORTABLE) Stat Exams 07/28/16 00:23 Taken ARTERIAL BLOOD GASES Stat Lab 07/28/16 00:45 Completed BLOOD CULTURE Stat Lab 07/28/16 00:50 Received CBC W DIFF Stat Lab 07/28/16 00:40 Completed CMP Stat Lab 07/28/16 00:40 Completed CULTURE,SPUTUM Stat Lab 07/28/16 01:30 Ordered MAGNESIUM Stat Lab 07/28/16 00:40 Completed NT PRO BNP Stat Lab 07/28/16 00:40 Completed PROTIME WITH INR Stat Lab 07/28/16 00:40 Completed PTT Stat Lab 07/28/16 00:40 Completed TROPONIN Stat Lab 07/28/16 00:40 Completed BiPap/CPAP Assessment ROUTINE RT 07/28/16 00:22 Completed Respiratory Nebulizer STAT RT 07/28/16 00:25 Completed Medication Summary Generic Name Dose Route Start Last Admin Trade Name Freq PRN Reason Stop Dose Admin Sodium Chloride 1,000 mls @ 100 mls/hr 07/28/16 00:30 07/28/16 00:41 Sodium Chloride 0.9% 1000 Ml IV 08/27/16 00:29 100 mls/hr .Q10H YAIR Administration Discontinued Medications Generic Name Dose Route Start Last Admin Trade Name Enrico PRN Reason Stop Dose Admin Albuterol/Ipratropium Confirm 07/28/16 00:21 Duoneb 0.5-3 Mg/3 Ml Neb Administered 07/28/16 00:22 Dose 3 ml IH .STK-MED ONE Albuterol/Ipratropium 3 ml 07/28/16 00:22 07/28/16 00:22 Duoneb 0.5-3 Mg/3 Ml Neb IH 07/28/16 00:23 3 ml STAT ONE Administration Magnesium Sulfate/Dextrose 100 mls @ 200 mls/hr 07/28/16 00:25 07/28/16 00:41 Magnesium 1 Gm / 100 Ml D5w IV 07/28/16 00:54 200 mls/hr STAT ONE Administration Ceftriaxone Sodium/Dextrose 1 g in 50 mls @ 100 mls/hr 07/28/16 00:22 01:27 Rocephin 1 Gm-D5w 50 Ml Bag IV 07/28/16 00:51 100 mls/hr STAT STA Administration Azithromycin 500 mg in 250 mls @ 250 mls/hr 07/28/16 00:22 Zithromax 500 Mg/ 250 Ml Nacl Premix IV 07/28/16 01:21 STAT STA Magnesium Sulfate/Dextrose Confirm 07/28/16 00:35 Magnesium 1 Gm / 100 Ml D5w Administered 07/28/16 00:36 Dose 100 mls @ ud IV .STK-MED ONE Ceftriaxone Sodium/Dextrose Confirm 07/28/16 01:24 Rocephin 1 Gm-D5w 50 Ml Bag Administered 07/28/16 01:25 Dose 1 g in 50 mls @ ud IV .STK-MED ONE Methylprednisolone Sodium Succinate 125 mg 07/28/16 00:25 07/28/16 00:42 Solu-Medrol 125 Mg IV 07/28/16 00:26 Not Given STAT ONE Methylprednisolone Sodium Succinate Confirm 07/28/16 00:35 Solu-Medrol 125 Mg Administered 07/28/16 00:36 Dose 125 mg .ROUTE .STK-MED ONE Lab/Rad Data: Laboratory Result Diagrams 07/28/16 00:40 07/28/16 00:40 Laboratory Results 07/28/16 07/28/16 07/28/16 Range/Units 00:45 00:40 00:40 WBC (4.0-10.5) K/mm3 RBC (4.1-5.6) M/mm3 Hgb (12.5-18.0) gm/dl Hct (42-50) % MCV (78-100) fl MCH (26-32) pg MCHC (32-36) g/dl RDW (11.5-14.0) % Plt Count (150-450) K/mm3 MPV (6-9.5) fl Gran % (36.0-66.0) % Lymphocytes % (24.0-44.0) % Monocytes % (0.0-12.0) % Eosinophils % (0.00-5.0) % Basophils % (0.0-0.4) % Basophils # (0-0.4) INR 1.04 (0.8-3.0) APTT 29.6 (24.1-36.1) SECONDS Puncture Site RIGHT RADIAL pCO2 49 H (35-45) mmHg pO2 252 H* (75-100) mmHg Base Excess 2.9 H (-2.0-2.0) O2 Saturation 97.1 (94-100) g/dF ABG pH 7.38 (7.35-7.45) ABG HCO3 29.0 H (22-28) ABG O2 Sat (Measured) 100.2 H (95-100) % Gopi Test YES A-a Gradient 257 a/A Ratio 0.50 Hemoglobin 14.6 Carboxyhemoglobin 2.4 (0.0-6.9) % THgb Methemoglobin 0.8 L (1.4-1.5) % Temperature 37.0 C POC O2 Flow Rate 80 % Inspiratory BiPAP 14 Expiratory BiPAP 6 Sodium 142 (136-145) mEq/L Potassium 4.1 4.2 (3.5-5.1) mEq/L Chloride 104 (98-107) mEq/L Carbon Dioxide 29.8 (21-32) mEq/L Anion Gap 12.7 (5-15) MEQ/L BUN 20 (9-20) mg/dL Creatinine 0.79 (0.55-1.30) mg/dl Estimated GFR > 60 ML/MIN Glucose 223 H (70-110) MG/DL Calcium 8.9 (8.5-10.1) mg/dL Magnesium 2.2 (1.8-2.4) mg/dL Total Bilirubin 0.50 (0.2-1.0) mg/dL AST 13 L (15-37) U/L ALT 20 (12-78) U/L Alkaline Phosphatase 78 (46-116) U/L Troponin I 0.081 H* (0.000-0.056) ng/ml NT-Pro-B Natriuret Pep 348 H (0-125) pg/ml Serum Total Protein 6.9 (6.4-8.2) gm/dL Albumin 3.5 (3.4-5.0) g/dL 07/28/16 Range/Units 00:40 WBC 11.0 H (4.0-10.5) K/mm3 RBC 4.77 (4.1-5.6) M/mm3 Hgb 14.1 (12.5-18.0) gm/dl Hct 44.5 (42-50) % MCV 93.3 (78-100) fl MCH 29.6 (26-32) pg MCHC 31.7 L (32-36) g/dl RDW 14.7 H (11.5-14.0) % Plt Count 255 (150-450) K/mm3 MPV 9.7 H (6-9.5) fl Gran % 62.6 (36.0-66.0) % Lymphocytes % 23.3 L (24.0-44.0) % Monocytes % 12.5 H (0.0-12.0) % Eosinophils % 1.4 (0.00-5.0) % Basophils % 0.2 (0.0-0.4) % Basophils # 0.02 (0-0.4) INR (0.8-3.0) APTT (24.1-36.1) SECONDS Puncture Site pCO2 (35-45) mmHg pO2 (75-100) mmHg Base Excess (-2.0-2.0) O2 Saturation (94-100) g/dF ABG pH (7.35-7.45) ABG HCO3 (22-28) ABG O2 Sat (Measured) (95-100) % Gopi Test A-a Gradient a/A Ratio Hemoglobin Carboxyhemoglobin (0.0-6.9) % THgb Methemoglobin (1.4-1.5) % Temperature C POC O2 Flow Rate % Inspiratory BiPAP Expiratory BiPAP Sodium (136-145) mEq/L Potassium (3.5-5.1) mEq/L Chloride (98-107) mEq/L Carbon Dioxide (21-32) mEq/L Anion Gap (5-15) MEQ/L BUN (9-20) mg/dL Creatinine (0.55-1.30) mg/dl Estimated GFR ML/MIN Glucose (70-110) MG/DL Calcium (8.5-10.1) mg/dL Magnesium (1.8-2.4) mg/dL Total Bilirubin (0.2-1.0) mg/dL AST (15-37) U/L ALT (12-78) U/L Alkaline Phosphatase (46-116) U/L Troponin I (0.000-0.056) ng/ml NT-Pro-B Natriuret Pep (0-125) pg/ml Serum Total Protein (6.4-8.2) gm/dL Albumin (3.4-5.0) g/dL - Progress Discussed with Dr.: Other (SPOKE WITH LEDY BAER, N.P.(FOR DR WHITING)([id number]) WHO ACCEPTED PT FOR TRANSFER TO [facility] A DIRECT ADMISSION.) - Departure Time of Disposition: 01:56 Departure Disposition: Transfer ([facility]) Clinical Impression: DYSPNEA, ELEVATED TROPONIN, COPD, CARDIAC DYSRHYTHMIA Condition: Stable Critical Care Time: Yes Critical Care Time(excluding separately billable procedures): 30-74 minutes
[2016-07-28] MEDS ORDERED: Sodium Chloride 0.9% 1000 ML 1,000 ML IV SCH (00:30)
[2016-07-28] MEDS ORDERED: solu-MEDROL 125 MG ONE (00:35)
[2016-07-28] MEDS ORDERED: Sodium Chloride 0.9% 1000 ML 1,000 ML ONE (00:35)
[2016-07-28 00:50] LABS: A-aADO2 257; ARTERIAL BLD GAS O2 SATURATION 100.2 % (95-100); ARTERIAL BLOOD GAS BASE EXCESS 2.9 (-2.0-2.0); ARTERIAL BLOOD GAS FIO2 80 %; ARTERIAL BLOOD GAS PO2 252 mmHg (75-100); ARTERIAL BLOOD GAS pH 7.38 (7.35-7.45); BIPAP(E) 6; BIPAP(I) 14
[2016-07-28 00:51] LABS: ALLEN TEST OK? YES
[2016-07-28 00:53] LABS: BASOPHIL % 0.2 % (0.0-0.4); Eosinophil % 1.4 % (0.00-5.0); Granulocytes % 62.6 % (36.0-66.0); Lymphocytes % 23.3 % (24.0-44.0); Mean Cell Volume 93.3 fl (78-100); Mean Corpuscular Hemoglobin 29.6 pg (26-32); Mean Platelet Volume 9.7 fl (6-9.5); Monocytes % 12.5 % (0.0-12.0); Platelet Count 255 K/mm3 (150-450); Red Blood Count 4.77 M/mm3 (4.1-5.6); Red Cell Distribution Width 14.7 % (11.5-14.0)
[2016-07-28 01:01] LABS: INR 1.04 (0.8-3.0); PROTIME 11.7 SECONDS (8.83-12.87)
[2016-07-28 01:03] LABS: PTT 29.6 SECONDS (24.1-36.1)
[2016-07-28] MEDS ORDERED: ROCEPHIN 1 Gm-D5w 50 ml Bag** 1 G/50 ML IVPB IV ONE (01:24)
[2016-07-28 01:27] LABS: ALBUMIN 3.5 g/dL (3.4-5.0); ALKALINE PHOSPHATASE 78 U/L (46-116); ANION GAP 12.7 MEQ/L (5-15); BLOOD UREA NITROGEN 20 mg/dL (9-20); CHLORIDE 104 mEq/L (98-107); Carbon Dioxide 29.8 mEq/L (21-32); Glucose 223 MG/DL (70-110); MAGNESIUM 2.2 mg/dL (1.8-2.4); Potassium 4.2 mEq/L (3.5-5.1); SGOT/AST 13 U/L (15-37); SGPT/ALT 20 U/L (12-78); SODIUM 142 mEq/L (136-145); Total Protein 6.9 gm/dL (6.4-8.2)
[2016-07-28 01:30] LABS: TROPONIN 0.081 ng/ml (0.000-0.056)
[2016-07-28] MEDS ORDERED: Zithromax 500 MG/ 250 ML NaCl Premix 500 MG/250 ML IVPB IV ONE (02:55)
[2016-07-28 02:59] VITALS: BP 88/62; PULSE 92; O2SAT 99
--- NOTE | 2016-07-28 09:29 | XRAY ---
Indication: Short of breath. Comparison: May 03, 2016. Portable chest again hyperinflated and clear. Heart and mediastinal structures stable and within normal limits. Bony thorax intact. Impression: Stable nonacute hyperinflated chest.
== END 2016-07-28 03:19 | disposition short-term general hospital (02) ==
LOC: ED 00:15
DX: J43.9 Emphysema, unspecified (principal); R06.00 Dyspnea, unspecified; R79.89 Other specified abnormal findings of blood chemistry; J44.9 Chronic obstructive pulmonary disease, unspecified; I49.8 Other specified cardiac arrhythmias
CPT/HCPCS: 36000; 36415; 36600; 71010; 80053; 82375; 82803; 83735; 83880; 84484; 85025; 85610; 85730; 87040; 93005; 93041; 94002; 94640; 96360; 96361; 96365; 96366; 96367; 99285; J0456; J0696; J2930; J3475; A9270-GY

== ENCOUNTER 2016-10-21 02:39 | Emergency (ER) | payer MEDICARE, OTHER ==
[2016-10-21] MEDS ORDERED: ROCEPHIN 1 Gm-D5w 50 ml Bag** 1 G/50 ML IVPB IV STA (02:43)
[2016-10-21] MEDS ORDERED: Sodium Chloride 0.9% 1000 ML 1,000 ML IV SCH (02:45)
--- NOTE | 2016-10-21 02:52 | ERPHSYRPT ---
- History of Present Illness Time Seen by Provider: 10/21/16 02:43 Source: patient, EMS, old records Exam Limitations: no limitations Patient Subjective Stated Complaint: has copd having difficulty breathing Triage Nursing Assessment: pt ias alert and oriented, able to ambualte, but short of breath at rest, some skin tears and bruising on arms bilateral. pulses present bilateral radius and pedal pulses present also, skin clean dry and intact. Physician History: hx copd; sob and coughing for 48 hours; friend visiting from with bronchitis ; no fever; no productive cough; no pain; increased sob; no hemoptosis; no other complaints; no travel Timing/Duration: today (worse), yesterday (onset), gradual onset, worse Activities at Onset: rest Severity of Dyspnea-Max: severe Severity of Dyspnea-Current: moderate Possible Cause: occasional episodes Modifying Factors: Improves With: albuterol inhaler, coughing, oxygen Associated Symptoms: cough, wheezing International travel in last 2 weeks: No Allergies/Adverse Reactions: acetylcysteine [From Mucomyst] Adverse Reaction (Intermediate, Verified 07:35) Shortness of Breath SOB AND INCREASED HEART RATE AFTER MUCOMYST TREATMENT. Home Medications: Albuterol Sulfate [Proair Hfa] 2 puff IH QIDPRN PRN 05/05/14 [History] Albuterol Sulfate 2.5 mg IH Q6HPRN PRN 05/03/16 [History] Fluticasone/Salmeterol [Advair 250-50 Diskus] 1 puff IH BID 05/03/16 [History] Sacubitril/Valsartan [Entresto 24 mg-26 mg Tablet] 1 each PO BID 05/03/16 [ History] Digoxin 0.125 mg Tablet [Lanoxin 0.125MG TABLET] 125 mcg PO DAILY [History] Metoprolol Succinate 25 mg Xl* [Toprol-Xl 25MG Tablets] 12.5 mg PO DAILY 04/07 [History] Rivaroxaban [Xarelto] 20 mg PO DAILY 10/21/16 [History] Hx Tetanus, Diphtheria Vaccination/Date Given: Yes Hx Influenza Vaccination/Date Given: Yes Hx Pneumococcal Vaccination/Date Given: Yes Immunizations Up to Date: Yes - Review of Systems Constitutional: No Symptoms Eyes: No Symptoms Ears, Nose, & Throat: No Symptoms Respiratory: Cough, Dyspnea, Dyspnea on Exertion (TORRES), Wheezing, No Cyanosis Cardiac: No Chest Pain, No Edema, No Palpitations, No Syncope Abdominal/Gastrointestinal: No Abdominal Pain, No Nausea, No Vomiting, No Diarrhea Genitourinary Symptoms: No Symptoms Musculoskeletal: No Symptoms Skin: No Symptoms Neurological: No Symptoms Psychological: No Symptoms Endocrine: No Symptoms Hematologic/Lymphatic: No Symptoms Immunological/Allergic: No Symptoms - Past Medical History Pertinent Past Medical History: No Neurological History: No Pertinent History ENT History: Cataracts Cardiac History: Arrhythmia Respiratory History: COPD Endocrine Medical History: No Pertinent History Musculoskeletal History: No Pertinent History GI Medical History: No Pertinent History History: No Pertinent History Psycho-Social History: No Pertinent History Male Reproductive Disorders: No Pertinent History Other Medical History: "irratic heartbeat" - Past Surgical History Past Surgical History: No Neuro Surgical History: No Pertinent History Cardiac: No Pertinent History Respiratory: No Pertinent History Gastrointestinal: No Pertinent History Genitourinary: No Pertinent History Musculoskeletal: No Pertinent History Other Surgical History: cataracts sx in 2013 - Social History Smoking Status: Former smoker Exposure to second hand smoke: No Alcohol Use: None Drug Use: none Patient Lives Alone: No Significant Family History: no pertinent family hx - Nursing Vital Signs Nursing Vital Signs: Initial Vital Signs Temperature 97.8 F 10/21/16 02:39 Pulse Rate 90 10/21/16 02:39 Respiratory Rate 20 10/21/16 02:39 Blood Pressure 140/69 10/21/16 02:39 O2 Sat by Pulse Oximetry 99 10/21/16 02:39 Pain Scale Pain Intensity 0 - Physical Exam General Appearance: moderate distress (respiratory), alert, thin Eye Exam: PERRL/EOMI, eyes nml inspection, No photophobia Ears, Nose, Throat Exam: hearing grossly normal, normal ENT inspection, normal pharynx Neck Exam: normal inspection, non-tender, supple, full range of motion, No meningismus, No JVD Respiratory Exam: respiratory distress (moderate), airway intact, diminished breath sounds, accessory muscle use, prolonged expirations, crackles/rales, rhonchi, wheezing, No normal breath sounds, No chest tenderness, No stridor, No pleural rub Cardiovascular/Chest Exam: normal heart sounds, regular rate/rhythm, normal peripheral pulses, No edema, No JVD Abdominal/Gastrointestinal Exam: soft, normal bowel sounds, No tenderness, No guarding, No rebound, No organomegaly Rectal Exam: deferred Extremity Exam: non-tender, normal range of motion, normal inspection, no pedal edema, No calf tenderness, No tima's sign Peripheral Pulses Exam: carotid (R): 4+, carotid (L): 4+, femoral (R): 4+, femoral (L): 4+, dorsalis-pedis (R): 3+, dorsalis-pedis (L): 3+ Neurologic Exam: alert, oriented x 3, cooperative, computer technologist II-XII nml as tested, normal mood/affect, nml cerebellar function, nml station & gait, sensation nml Skin Exam: normal color, warm, dry, No rash SpO2 Interpretation: normal, O2 applied SpO2: 99 Oxygen Delivery: Nasal Cannula (3l) - Course Nursing assessment & vital signs reviewed: Yes - Radiology Exams Chest X-ray Interpretation: Interpreted by me, No Pneumonia, No Pneumothorax, Nml Heart Size, No Infiltrates, Other (COPD) Ordered Tests: Active Orders 24 hr Category Date Time Status Welder Gun STAT Care 10/21/16 02:43 Active IV Insertion STAT Care 10/21/16 02:43 Active Oxygen-ED Only NASAL CANNULA 3 lpm Care 10/21/16 02:43 Active Pulse Oximetry (ED) STAT Care 10/21/16 02:43 Active CHEST 1 VIEW (PORTABLE) Stat Exams 10/21/16 02:43 Taken BLOOD CULTURE Stat Lab 10/21/16 03:08 Received BMP Stat Lab 10/21/16 02:50 Completed CBC W DIFF Stat Lab 10/21/16 02:50 Completed Lactic Acid Stat Lab 10/21/16 03:10 Completed MAGNESIUM Stat Lab 10/21/16 02:50 Completed Peak Expiratory Flow Rate ONCE RT 10/21/16 02:43 Active Respiratory Nebulizer STAT RT 10/21/16 02:58 Active Transfer Order Routine Transfer 10/21/16 Ordered Medication Summary Generic Name Dose Route Start Last Admin Trade Name Freq PRN Reason Stop Dose Admin Sodium Chloride 1,000 mls @ 100 mls/hr 10/21/16 02:45 10/21/16 03:01 Sodium Chloride 0.9% 1000 Ml IV 11/20/16 02:44 100 mls/hr .Q10H YAIR Administration Magnesium Sulfate/Dextrose 100 mls @ 200 mls/hr 10/21/16 03:27 10/21/16 03:43 Magnesium 1 Gm / 100 Ml D5w IV 10/21/16 03:56 200 mls/hr STAT ONE Administration Discontinued Medications Generic Name Dose Route Start Last Admin Trade Name Enrico PRN Reason Stop Dose Admin Albuterol Sulfate 2.5 mg 10/21/16 02:58 10/21/16 03:10 Proventil 2.5 Mg/3 Ml Neb IH 10/21/16 02:59 2.5 mg STAT ONE Administration Albuterol Sulfate Confirm 10/21/16 03:09 Proventil 2.5 Mg/3 Ml Neb Administered 10/21/16 03:10 Dose 2.5 mg IH .STK-MED ONE Ceftriaxone Sodium/Dextrose 1 g in 50 mls @ 100 mls/hr 10/21/16 02:43 03:01 Rocephin 1 Gm-D5w 50 Ml Bag IV 10/21/16 03:12 100 mls/hr STAT STA Administration Ceftriaxone Sodium/Dextrose Confirm 10/21/16 02:53 Rocephin 1 Gm-D5w 50 Ml Bag Administered 10/21/16 02:54 Dose 1 g in 50 mls @ ud IV .STK-MED ONE Magnesium Sulfate/Dextrose Confirm 10/21/16 03:42 Magnesium 1 Gm / 100 Ml D5w Administered 10/21/16 03:43 Dose 100 mls @ ud IV .STK-MED ONE Lab/Rad Data: Laboratory Result Diagrams 10/21/16 02:50 10/21/16 02:50 Laboratory Results 10/21/16 10/21/16 10/21/16 Range/Units 03:10 02:50 02:50 WBC 7.7 (4.0-10.5) K/mm3 RBC 4.37 (4.1-5.6) M/mm3 Hgb 12.6 (12.5-18.0) gm/dl Hct 40.1 L (42-50) % MCV 91.8 (78-100) fl MCH 28.8 (26-32) pg MCHC 31.4 L (32-36) g/dl RDW 13.8 (11.5-14.0) % Plt Count 164 (150-450) K/mm3 MPV 9.9 H (6-9.5) fl Gran % 59.9 (36.0-66.0) % Lymphocytes % 23.3 L (24.0-44.0) % Monocytes % 13.3 H (0.0-12.0) % Eosinophils % 3.4 (0.00-5.0) % Basophils % 0.1 (0.0-0.4) % Basophils # 0.01 (0-0.4) Sodium 137 (136-145) mEq/L Potassium 3.7 (3.5-5.1) mEq/L Chloride 102 (98-107) mEq/L Carbon Dioxide 31.5 (21-32) mEq/L Anion Gap 7.6 (5-15) MEQ/L BUN 13 (9-20) mg/dL Creatinine 0.76 (0.55-1.30) mg/dl Estimated GFR > 60 ML/MIN Glucose 107 (70-110) MG/DL Lactic Acid 1.3 (0.4-2.0) Calcium 8.9 (8.5-10.1) mg/dL Magnesium 1.7 L (1.8-2.4) mg/dL reviewed - Progress Progress: improved (after duonebs), re-examined (after meds) Air Movement: fair Progress Note: 10/21/16 02:51 doing better after solumedrol and duoneb enroute by EMS; IV maintained; labs and xr pending; will monitor and recheck; peak flows pending 10/21/16 03:08 cxr COPD; peak flow 150 post duoneb; labs pending; will monitor and recheck 10/21/16 03:28 Mg++ low and will give some IV MG and recheck; other labs ok 10/21/16 03:39 rechecked and moving air better clinically but no change in peak flow after second treatment;he states he is at a 4/10 improved as opposed to 1/10 when he called 911; vs improved; will consult attending for disposition; patient concurs with need for admission; he directed us to contact the Hospitalist at [facility] for transfer 10/21/16 03:54 Dr Stallings, Hospitalist at [facility] consulted and accepted the patient for admission Blood Culture(s) Obtained: Yes Antibiotics given: Yes Discussed with Dr.: Other (Dr Stallings consulted and accepted transfer for admission) Will see patient in: hospital (observation) Counseled pt/family regarding: lab results, diagnosis, need for follow-up, rad results - Departure Time of Disposition: 03:40 Departure Disposition: Observation, Transfer (to HospitalistDr Camargo at [facility] for admission) Clinical Impression: COPD exacerbation, Hypomagnesemia, Emphysema lung, Respiratory distress determined by examination Condition: Serious Critical Care Time: Yes Critical Care Time(excluding separately billable procedures): 30-74 minutes Referrals: DUKE CARRILLO [Primary Care Provider] - Instructions: Chronic Obstructive Pulmonary Disease
[2016-10-21] MEDS ORDERED: Sodium Chloride 0.9% 1000 ML 1,000 ML ONE (02:53)
[2016-10-21] MEDS ORDERED: ROCEPHIN 1 Gm-D5w 50 ml Bag** 1 G/50 ML IVPB IV ONE (02:53)
[2016-10-21] MEDS ORDERED: PROVENTIL 2.5 MG/3 ML NEB IH ONE ×4 (02:58→04:45)
[2016-10-21 03:01] LABS: BASOPHIL % 0.1 % (0.0-0.4); Eosinophil % 3.4 % (0.00-5.0); Granulocytes % 59.9 % (36.0-66.0); Lymphocytes % 23.3 % (24.0-44.0); Mean Cell Volume 91.8 fl (78-100); Mean Corpuscular Hemoglobin 28.8 pg (26-32); Mean Platelet Volume 9.9 fl (6-9.5); Monocytes % 13.3 % (0.0-12.0); Platelet Count 164 K/mm3 (150-450); Red Blood Count 4.37 M/mm3 (4.1-5.6); Red Cell Distribution Width 13.8 % (11.5-14.0); White Blood Count 7.7 K/mm3 (4.0-10.5)
[2016-10-21 03:19] LABS: ANION GAP 7.6 MEQ/L (5-15); BLOOD UREA NITROGEN 13 mg/dL (9-20); CHLORIDE 102 mEq/L (98-107); Carbon Dioxide 31.5 mEq/L (21-32); Glucose 107 MG/DL (70-110); MAGNESIUM 1.7 mg/dL (1.8-2.4); Potassium 3.7 mEq/L (3.5-5.1); SODIUM 137 mEq/L (136-145)
[2016-10-21] MEDS ORDERED: Magnesium 1 Gm / 100 Ml D5W*** 100 ML IV ONE ×2 (03:27→03:42)
[2016-10-21 03:29] VITALS: O2SAT 99
[2016-10-21 04:23] VITALS: BP 139/75; PULSE 83
--- NOTE | 2016-10-21 08:15 | XRAY ---
Indication: Cough and short of breath. Comparison: July 28, 2016. Portable chest again demonstrates COPD with scattered fibrosis/scarring. No focal infiltrate, consolidation, or large effusion. Heart is not enlarged. New left-sided dual lead pacemaker. Bony thorax intact. Impression: Stable COPD. New pacemaker without complications. Negative for acute pneumonic process or CHF.
== END 2016-10-21 04:59 | disposition short-term general hospital (02) ==
LOC: ED 02:39
DX: J44.1 Chronic obstructive pulmonary disease with (acute) exacerbation (principal); E83.42 Hypomagnesemia; J43.9 Emphysema, unspecified; R06.00 Dyspnea, unspecified
CPT/HCPCS: 36000; 36415; 71010; 80048; 83605; 83735; 85025; 87040; 87631; 93041; 94150; 94640; 96360; 96361; 96365; 96366; 99285; J0696; J3475; A9270-GY